=== PATIENT | female | born 1945 | race African-American/Black ===

== ENCOUNTER 2018-02-09 09:04 | Emergency (ER) | payer OTHER ==
[~2018-02-09] VITALS: Ht 162.6 cm; Wt 68.0 kg
[~2018-02-09 09:04] MED LIST: CAPOTEN PO; DILTIAZEM 24HR120 MG PO; LASIX 40 MG TAB40 M1 PO; PREMARIN0.625 MG PO; PREMARIN42.5 GM VG
[2018-02-09 09:55] LABS: ABSOLUTE EOSINOPHILS 0.1 thou/uL (0.0-0.7); ABSOLUTE LYMPHOCYTES 1.5 thou/uL (0.8-5.3); ABSOLUTE MONOCYTES 0.5 thou/uL (0.0-1.2); ABSOLUTE NEUTROPHILS 1.7 thou/uL (1.6-8.1); EOSINOPHILS 1.7 %; HEMATOCRIT 35.3 % (37.0-47.0); HEMOGLOBIN 11.8 gm/dL (12.0-15.0); LYMPHOCYTES 40.3 %; MCH 30.7 pg (26.0-34.0); MCHC 33.3 g/dL (28.0-37.0); MCV 92.1 fL (80.0-100.0); MONOCYTES 12.4 %; MPV 7.2 fl. (7.2-11.1); NUCLEATED RBCS 0 /100WBC; PLATELET COUNT* 257 thou/uL (150-400); POLYS 44.6 %; RBC 3.83 mil/uL (4.20-5.00); RDW-CV 14.7 % (10.5-14.5); WBC 3.7 thou/uL (4.0-11.0)
[2018-02-09 10:09] LABS: ANION GAP 9 mmol/L (7-16); BUN 14 mg/dL (7-18); CALCIUM 9.1 mg/dL (8.5-10.1); CHLORIDE 105 mmol/L (98-107); CO2 28 mmol/L (21-32); CREATININE 0.8 mg/dL (0.6-1.3); GLUCOSE 88 mg/dL (70-99); POTASSIUM 3.7 mmol/L (3.5-5.1); SODIUM 142 mmol/L (136-145)
[2018-02-09 10:14] LABS: ALBUMIN 3.5 g/dL (3.4-5.0); ALKALINE PHOSPHATASE 75 U/L (46-116); SGOT 17 U/L (15-37); SGPT 19 U/L (30-65); TOTAL BILIRUBIN 0.5 mg/dL (<0.1-1.0); TOTAL PROTEIN 7.9 g/dL (6.4-8.2); TROPONIN-I LEVEL <0.06 ng/mL (<0.06)
[2018-02-09] MEDS ORDERED: ATORVASTATIN CA40 MG PO (11:12)
[2018-02-09] MEDS ORDERED: ASPIR 8181 MG PO (11:12)
[2018-02-09] MEDS ORDERED: COREG25 MG PO (11:13)
[2018-02-09] MEDS ORDERED: LISINOPRIL20 MG PO (11:13)
[2018-02-09] MEDS ORDERED: VITAMIN D2000 UNIT PO (11:13)
[2018-02-09] MEDS ORDERED: POTASSIUM20 PO (11:14)
[2018-02-09] MEDS ORDERED: PROTONIX40 M1 PO (11:14)
[2018-02-09 12:03] VITALS: BP 165/101
--- NOTE | 2018-02-09 16:18 | EKG ---
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 : 1945 Requested By: Leobardo Heredia Order Number: [id number] Milagros MD: Miguel Ángel Johns Measurements Intervals [place] Rate: 58 P: 0 NM: 225 QRS: -9 QRSD: 88 T: 47 QT: 505 QTc: 497 Interpretive Statements Sinus rhythm Prolonged NM interval Possible anteroseptal infarct, old Minimal ST depression, lateral leads Baseline wander in lead(s) I,II,aVR,V1,V3,V4,V5 Compared to ECG 11/23/2016 08:42:51 First degree AV block now present ST (T wave) deviation now present Myocardial infarct finding still present Electronically Signed On 02-09-2018 16:17:55 CDT by Miguel Ángel Johns [email or web address] <ELECTRONICALLY SIGNED> By: Miguel Ángel Johns MD, FAC 02/09/18 1617 0929 Miguel Ángel Johns MD, [facility] /EPI
== END 2018-02-09 12:12 | disposition home or self-care (01) ==
LOC: M.ERS 09:04
PROVIDERS: Emergency Medicine Emergency Medical Services
DX: I10 Essential (primary) hypertension (principal); K64.9 Unspecified hemorrhoids

== ENCOUNTER → 2018-07-11 | Outpatient (CLI) | payer OTHER ==
[~2018-07-11] MED LIST changes: +ASPIR 8181 MG PO; +ATORVASTATIN CA40 MG PO; +COREG25 MG PO; +LISINOPRIL20 MG PO; +POTASSIUM20 PO; +PROTONIX40 M1 PO; +VITAMIN D2000 UNIT PO
== END ==
LOC: M.MRI 07-04 12:10
DX: G31.9 Degenerative disease of nervous system, unspecified (principal); M47.812 Spondylosis without myelopathy or radiculopathy, cervical region; I10 Essential (primary) hypertension; M48.02 Spinal stenosis, cervical region; M50.223 Other cervical disc displacement at C6-C7 level; I25.10 Atherosclerotic heart disease of native coronary artery without angina pectoris

== ENCOUNTER → 2019-01-04 | Outpatient (CLI) | payer OTHER | LOC: M.CT 06:39 | DX: I25.10 Atherosclerotic heart disease of native coronary artery without angina pectoris (principal); J98.11 Atelectasis; I10 Essential (primary) hypertension; I51.7 Cardiomegaly; G44.229 Chronic tension-type headache, not intractable; G89.29 Other chronic pain; M54.5 Low back pain; R42 Dizziness and giddiness; M47.815 Spondylosis without myelopathy or radiculopathy, thoracolumbar region; Z90.710 Acquired absence of both cervix and uterus ==

== ENCOUNTER 2019-10-30 09:12 | Emergency (ER) | payer OTHER ==
[~2019-10-30] VITALS: Ht 162.6 cm; Wt 68.0 kg
[2019-10-30] MEDS ORDERED: NORVASC 2.5 MG2.5 M1 PO (09:21)
[2019-10-30 10:03] LABS: ABSOLUTE LYMPHOCYTES 1.6 thou/uL (0.8-5.3); ABSOLUTE MONOCYTES 0.5 thou/uL (0.0-1.2); ABSOLUTE NEUTROPHILS 1.3 thou/uL (1.6-8.1); BASOPHILS 1.3 %; EOSINOPHILS 1.1 %; HEMATOCRIT 24.2 % (37.0-47.0); HEMOGLOBIN 7.8 gm/dL (12.0-15.0); MCH 23.6 pg (26.0-34.0); MCHC 32.3 g/dL (28.0-37.0); MCV 72.9 fL (80.0-100.0); MONOCYTES 14.8 %; MPV 6.5 fl. (7.2-11.1); NUCLEATED RBCS 0 /100WBC; PLATELET COUNT* 338 thou/uL (150-400); POLYS 37.8 %; RBC 3.32 mil/uL (4.20-5.00); RDW-CV 19.5 % (10.5-14.5); WBC 3.5 thou/uL (4.0-11.0)
[2019-10-30 10:14] LABS: CALCIUM 9.2 mg/dL (8.5-10.1); CREATININE 0.7 mg/dL (0.6-1.3); POTASSIUM 4.1 mmol/L (3.5-5.1)
[2019-10-30 10:16] LABS: PROTIME 10.5 Seconds (9.20-11.50)
[2019-10-30 10:24] LABS: ALBUMIN 3.3 g/dL (3.4-5.0); TOTAL BILIRUBIN 0.3 mg/dL (<0.1-1.0); TOTAL PROTEIN 7.9 g/dL (6.4-8.2)
[2019-10-30 12:17] VITALS: BP 154/87
--- NOTE | 2019-10-30 15:42 | EKG ---
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: : 1945 Requested By: Brady Dawn Order Number: [id number] : Miguel Ángel Johns Measurements Intervals [place] Rate: 68 P: -6 SC: 229 QRS: -1 QRSD: 96 T: 32 QT: 418 QTc: 445 Interpretive Statements Sinus rhythm Prolonged SC interval Probable anteroseptal infarct, old Compared to ECG 02/09/2018 09:29:22 ST (T wave) deviation no longer present Myocardial infarct finding still present Electronically Signed On 10-30-2019 15:41:42 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
== END 2019-10-30 12:20 | disposition short-term general hospital (02) ==
LOC: M.ERS 09:12
PROVIDERS: Emergency Medicine
DX: R07.9 Chest pain, unspecified (principal); I10 Essential (primary) hypertension; Z95.5 Presence of coronary angioplasty implant and graft; Z90.711 Acquired absence of uterus with remaining cervical stump

== ENCOUNTER → 2019-11-13 | Outpatient (CLI) | payer OTHER ==
[~2019-11-13] MED LIST changes: +NORVASC 2.5 MG2.5 M1 PO
== END ==
LOC: M.CT 08:10
DX: J98.4 Other disorders of lung (principal); D50.0 Iron deficiency anemia secondary to blood loss (chronic); I10 Essential (primary) hypertension; I77.810 Thoracic aortic ectasia; M47.815 Spondylosis without myelopathy or radiculopathy, thoracolumbar region; K57.30 Diverticulosis of large intestine without perforation or abscess without bleeding; I70.0 Atherosclerosis of aorta; K76.0 Fatty (change of) liver, not elsewhere classified; Z90.710 Acquired absence of both cervix and uterus

== ENCOUNTER → 2020-05-29 | Outpatient (CLI) | payer OTHER | LOC: M.RAD 08:52 | PROVIDERS: ATTEND Internal Medicine | DX: Z12.31 Encounter for screening mammogram for malignant neoplasm of breast (principal); I10 Essential (primary) hypertension; M85.80 Other specified disorders of bone density and structure, unspecified site; I25.10 Atherosclerotic heart disease of native coronary artery without angina pectoris; G44.229 Chronic tension-type headache, not intractable; N95.8 Other specified menopausal and perimenopausal disorders ==

== ENCOUNTER 2021-03-04 15:21 | Emergency (ER) | payer OTHER ==
[~2021-03-04] VITALS: Ht 162.6 cm; Wt 62.6 kg
[2021-03-04] MEDS ORDERED: PLAVIX 75 MG TA75 MG PO (15:34)
[2021-03-04] MEDS ORDERED: IRON325 PO (15:35)
[2021-03-04] MEDS ORDERED: PREMARIN 0.3MG0.3 MG PO (15:35)
[2021-03-04] MEDS ORDERED: COLACE100 MG PO (15:35)
[2021-03-04] MEDS ORDERED: ULTRAM 50MG TAB50 MG PO ×4 (16:22→16:27)
[2021-03-04 16:25] VITALS: BP 115/73
[2021-03-04] MEDS ORDERED: TRAMADOL 50 MG50 MG PO (16:31)
== END 2021-03-04 16:26 | disposition home or self-care (01) ==
LOC: M.ERS 15:21
DX: M25.531 Pain in right wrist (principal); I10 Essential (primary) hypertension; Z98.890 Other specified postprocedural states; Z95.5 Presence of coronary angioplasty implant and graft; Z90.711 Acquired absence of uterus with remaining cervical stump; Z79.82 Long term (current) use of aspirin; Z79.899 Other long term (current) drug therapy; X50.0XXA Overexertion from strenuous movement or load, initial encounter; Y93.89 Activity, other specified; Y92.89 Other specified places as the place of occurrence of the external cause; Y99.8 Other external cause status

== ENCOUNTER → 2021-03-23 | Outpatient (CLI) | payer OTHER ==
[~2021-03-23] MED LIST changes: +COLACE100 MG PO; +IRON325 PO; +PLAVIX 75 MG TA75 MG PO; +PREMARIN 0.3MG0.3 MG PO; +TRAMADOL 50 MG50 MG PO; +ULTRAM 50MG TAB50 MG PO
== END ==
LOC: M.RAD 11:21
PROVIDERS: ATTEND Internal Medicine
DX: M47.812 Spondylosis without myelopathy or radiculopathy, cervical region (principal); M25.78 Osteophyte, vertebrae

== ENCOUNTER → 2021-08-05 | Outpatient (CLI) | payer OTHER | LOC: M.MRI 07-13 15:15 | PROVIDERS: ATTEND Internal Medicine | DX: I67.82 Cerebral ischemia (principal); G31.89 Other specified degenerative diseases of nervous system; M48.02 Spinal stenosis, cervical region; M50.21 Other cervical disc displacement, high cervical region; M25.78 Osteophyte, vertebrae; R20.0 Anesthesia of skin; R20.2 Paresthesia of skin; G44.229 Chronic tension-type headache, not intractable ==